=== PATIENT | male | born 1950 ===

== ENCOUNTER 2021-03-28 12:15 | Emergency (ER) | payer SELFPAY ==
[~2021-03-28] VITALS: Ht 175.3 cm; Wt 79.7 kg
[2021-03-28 12:16] VITALS: BP 181/92
== END 2021-03-28 13:46 | disposition left against medical advice (07) ==
LOC: M ED 12:15
DX: Z53.21 Procedure and treatment not carried out due to patient leaving prior to being seen by health care provider (principal)